=== PATIENT | female | born 1930 | race Caucasian/White ===

== ENCOUNTER 2017-02-11 16:29 | Observation (INO) | payer OTHER ==
[2017-02-11 16:42] VITALS: BP 159/72; PULSE 74; RESP 18; TEMP 97.9; O2SAT 99
[2017-02-11 16:47] VITALS: BP 159/72; PULSE 64; RESP 18; TEMP 97.9; O2SAT 97
[2017-02-11] MEDS ORDERED: SODIUM CHLORIDE 0.9% FLUSH 10 ML FLUSH IVF PRN (17:00)
--- NOTE | 2017-02-11 17:22 | RADRPT ---
EXAM DATE/TIME: 02/11/2017 16:59 [facility] COMPARISON: No previous studies available for comparison. INDICATIONS : Chest pain starting today MEDICAL HISTORY : None. SURGICAL HISTORY : None. ENCOUNTER: Initial ACUITY: 1 day PAIN SCORE: 2/10 LOCATION: Bilateral chest FINDINGS: A single view of the chest demonstrates the lungs to be symmetrically aerated without evidence of mas s, infiltrate or effusion. The cardiomediastinal contours are unremarkable. Osseous structures are intact. CONCLUSION: 1. No acute cardiopulmonary disease. Azeem King MD on February 11, 2017 at 17:20 Board Certified Radiologist. This report was verified electronically.
[2017-02-11 17:23] LABS: AUTOMATED NEUTROPHIL # 3.7 TH/MM3 (1.8-7.7); BASOPHIL # 0.1 TH/MM3 (0-0.2); BASOPHIL % 1.9 % (0.0-2.0); EOSINOPHIL # 0.1 TH/MM3 (0-0.4); EOSINOPHIL % 1.6 % (0.0-4.0); HEMATOCRIT 39.9 % (35.0-46.0); HEMO FLAGS DIFF FINAL; LYMPH % 36.8 % (9.0-44.0); LYMPHOCYTE # 2.7 TH/MM3 (1.0-4.8); MEAN CELL VOLUME 92.9 FL (80.0-100.0); MEAN CORPUSCULAR HEMOGLOBIN 31.7 PG (27.0-34.0); MEAN CORPUSCULAR HGB CONC 34.1 % (32.0-36.0); MONO % 9.1 % (0.0-8.0); NEUT % 50.6 % (16.0-70.0); PLATELET COUNT 196 TH/MM3 (150-450); RED BLOOD COUNT 4.29 MIL/MM3 (4.00-5.30); RED CELL DISTRIBUTION WIDTH 12.8 % (11.6-17.2); WHITE BLOOD COUNT 7.3 TH/MM3 (4.0-11.0)
[2017-02-11 17:32] LABS: APTT (PATIENT) 24.2 SEC (24.3-30.1); PROTHROMBIN TIME - PATIENT 10.6 SEC (9.8-11.6)
[2017-02-11 17:48] LABS: ANION GAP 4 MEQ/L (5-15); BICARBONATE 32.1 MEQ/L (21.0-32.0); BLOOD UREA NITROGEN 12 MG/DL (7-18); CHLORIDE 106 MEQ/L (98-107); CREATINE KINASE 128 U/L (26-192); GLOMERULAR FILTRATION RATE 101 ML/MIN (>89); MAGNESIUM 2.2 MG/DL (1.5-2.5); POTASSIUM 3.5 MEQ/L (3.5-5.1); SODIUM (NA) 142 MEQ/L (136-145)
[2017-02-11 18:01] LABS: CKMB 1.8 NG/ML (0.5-3.6)
--- NOTE | 2017-02-11 18:28 | PD ---
HPI Chief Complaint: Pain: Acute or Chronic Time Seen by Provider: 16:52 Travel History International Travel<30 days: No Contact w/Intl Traveler<30days: No Traveled to known affect area: No History of Present Illness HPI This is a 86-year-old female with a history of dementia comes from a longterm with complaints of chest pain. The patient is a poor historian and unable to give history other than she has pain in the middle of her chest. She states the pain is much improved. Reportedly when [facility] arrived they gave her an aspirin and nitroglycerin. She reports it's nearly gone however is unable to quantitate the pain on a 1-10 scale. There is no radiation. PFSH Past Medical History ?: Not Social History Tobacco Use: No (unknown) Allergies-Medications (Allergen,Severity, Reaction): Coded Allergies: Penicillins (Verified Allergy, Severe, hives, 02/11/17) Review of Systems ROS Limitations: Poor Historian (secondary to dementia.) Except as stated in HPI: all other systems reviewed are Neg (review of systems Limited secondary to the patient's dementia.) Cardiovascular: Positive: Chest Pain or Discomfort (substernal), No: Palpitations ( denies radiation) Respiratory: Positive: Shortness of Breath (possibly. Patient unable to tell for sure if she had shortness of breath.), No: Cough Physical Exam Narrative GENERAL: Well-developed well-nourished female in no acute respiratory distress. SKIN: Focused skin assessment warm/dry. HEAD: Atraumatic. Normocephalic. EYES: Pupils equal and round. No scleral icterus. No injection or drainage. ENT: No nasal bleeding or discharge. Mucous membranes pink and moist. NECK: Trachea midline. No JVD. Supple. CARDIOVASCULAR: Regular rate and rhythm. No murmur appreciated. RESPIRATORY: No accessory muscle use. Clear to auscultation. Breath sounds equal bilaterally. GASTROINTESTINAL: Abdomen soft, non-tender, nondistended. MUSCULOSKELETAL: No obvious deformities. No clubbing. No cyanosis. No edema. NEUROLOGICAL: Awake and confused. No obvious cranial nerve deficits. Motor grossly within normal limits. Normal speech. Data Data Last Documented VS Vital Signs Date Time Temp Pulse Resp B/P (MAP) Pulse Ox O2 Delivery O2 Flow Rate FiO2 02/11/17 19:05 66 16 145/77 (99) 95 Room Air 02/11/17 16:47 97.9 Orders Orders Electrocardiogram (02/11/17 16:52) Basic Metabolic Panel (Bmp) (02/11/17 16:52) Ckmb (Isoenzyme) Profile (02/11/17 16:52) Complete Blood Count With Diff (02/11/17 16:52) Magnesium (Mg) (02/11/17 16:52) Prothrombin Time / Inr (Pt) (02/11/17 16:52) Act Partial Throm Time (Ptt) (02/11/17 16:52) Troponin I (02/11/17 16:52) Chest, Single Ap (02/11/17 16:52) Ecg Monitoring (02/11/17 16:52) Bilateral Bp Monitoring (02/11/17:52) Iv Access Insert/Monitor (02/11/17 16:52) Oximetry (02/11/17 16:52) Oxygen Administration (02/11/17 16:52) Sodium Chloride 0.9% Flush (Ns Flush) (02/11/17 17:00) CKMB (02/11/17 17:00) CKMB% (02/11/17 17:00) Labs Laboratory Tests Test 02/11/17 17:00 White Blood Count 7.3 TH/MM3 Red Blood Count 4.29 MIL/MM3 Hemoglobin 13.6 GM/DL Hematocrit 39.9 % Mean Corpuscular Volume 92.9 FL Mean Corpuscular Hemoglobin 31.7 PG Mean Corpuscular Hemoglobin Concent 34.1 % Red Cell Distribution Width 12.8 % Platelet Count 196 TH/MM3 Mean Platelet Volume 8.9 FL Neutrophils (%) (Auto) 50.6 % Lymphocytes (%) (Auto) 36.8 % Monocytes (%) (Auto) 9.1 % Eosinophils (%) (Auto) 1.6 % Basophils (%) (Auto) 1.9 % Neutrophils # (Auto) 3.7 TH/MM3 Lymphocytes # (Auto) 2.7 TH/MM3 Monocytes # (Auto) 0.7 TH/MM3 Eosinophils # (Auto) 0.1 TH/MM3 Basophils # (Auto) 0.1 TH/MM3 CBC Comment DIFF FINAL Differential Comment Prothrombin Time 10.6 SEC Prothromb Time International Ratio 1.0 RATIO Activated Partial Thromboplast Time 24.2 SEC Blood Urea Nitrogen 12 MG/DL Creatinine 0.57 MG/DL Random Glucose 86 MG/DL Calcium Level 8.2 MG/DL Magnesium Level 2.2 MG/DL Sodium Level 142 MEQ/L Potassium Level 3.5 MEQ/L Chloride Level 106 MEQ/L Carbon Dioxide Level 32.1 MEQ/L Anion Gap 4 MEQ/L Estimat Glomerular Filtration Rate 101 ML/MIN Total Creatine Kinase 128 U/L Creatine Kinase MB 1.8 NG/ML Troponin I LESS THAN 0.02 NG/ML MDM Medical Decision Making Medical Screen Exam Complete: Yes Emergency Medical Condition: Yes Differential Diagnosis ACS versus GERD versus musculoskeletal pain. Narrative Course 86-year-old female with history of dementia present since today with complaints of chest pain. The patient has dementia and resides in a longterm. EKG and cardiac enzymes show no acute process. Given the patient's dementia status , I do not feel she is in good candidate for the chest pain center. There is a call out to the [facility] for admission under observation. Diagnosis Primary Impression: Chest pain Additional Impression: History of dementia Khalif Perrin MD Feb 11, 2017 18:28
[2017-02-11 19:05] VITALS: BP 145/77; PULSE 66; RESP 16; O2SAT 95
[2017-02-11] MEDS ORDERED: SODIUM CHLORIDE 0.9% FLUSH 10 ML FLUSH IV FLUSH PRN (19:45)
[2017-02-11] MEDS ORDERED: NITROGLYCERIN 0.4 MG SL 25 TABS/BTL SL PRN ×2 (19:45→21:30)
[2017-02-11] MEDS ORDERED: IBUP400T20 PO (20:54)
[2017-02-11] MEDS ORDERED: AMLO5 PO (20:54)
[2017-02-11] MEDS ORDERED: LISI-515 PO (20:54)
[2017-02-11] MEDS ORDERED: DICL1GEL7 TOPICAL (20:54)
[2017-02-11] MEDS ORDERED: NITR0.4S SL (20:54)
[2017-02-11] MEDS ORDERED: MEMA1CAP2 PO (20:54)
[2017-02-11] MEDS ORDERED: MILKSUS PO (20:54)
[2017-02-11] MEDS ORDERED: ASPI81CH CHEW (20:54)
[2017-02-11] MEDS ORDERED: LORA-392 PO ×2 (20:54)
[2017-02-11] MEDS ORDERED: LIPI40TA PO (20:54)
--- NOTE | 2017-02-11 20:54 | HHI.HP ---
[facility] Dom Segura MD Admission Diagnosis chest pain, dementia by history Diagnoses: (1) Chest pain (2) History of dementia Chief Complaint: Chest pain Travel History International Travel<30 Days: No Contact w/Intl Traveler <30 Da: No Traveled to Known Affected Are: No History of Present Illness Written by Julieta Saez, acting as scribe for Dr. Weir on 02/11/17 at 20:54. The patient is seen in the ED. She states she has been at a rehab facility for 3 months. She states "they wont let me out". Today, she went to go get candy out of a machine and "something" happened "in the middle of me". She dropped all of her candy or a soda, and was taken by staff to another room. She reports that "something" was a bad feeling centrally located in her chest. She denies any radiating pain to arms or neck. She denies nausea or diaphoresis. She states that the bad feeling subsided spontaneously. She is a poor historian due to dementia. Denies shortness of breath, chest pain, palliations, dizziness, fever, nausea, vomiting, diarrhea, black or red stool, hematuria, or abdominal pain. Review of Systems Except as stated in HPI: all other systems reviewed are Neg Past Family Social History Past Medical History Per Patient: Hypertension Arthritis Atrial flutter possibly - not on anticoagulation Denies diabetes, CAD, CHF, asthma, COPD, emphysema, liver problems, kidney problems, DVT, PE, CVA, seizures, thyroid problems, or cancer Per records reviewed from [facility] H&P dated 10/21/16 Hyperlipidemia Hypertension Alcoholism Tobacco abuse From records reviewed from [facility] - specifically the Transfer Summary - unspecified dementia COPD Essential hypertension Hyperlipidemia Nicotine Dependence Anxiety disorder Constipation . Past Surgical History Per records reviewed from [facility] - H&P dated 10/21/16 Appendectomy Cholecystectomy Hernia repair x 2 Shoulder surgery . Reported Medications Reported Meds & Active Scripts Active Reported Ibuprofen 400 Mg Tab 400 Mg PO Q6H PRN Namzaric (Memantine-Donepezil) 28-10 Mg Cap 1 Cap PO HS Lipitor (Atorvastatin Calcium) 40 Mg Tab 40 Mg PO HS Norvasc (Amlodipine Besylate) 5 Mg Tab 5 Mg PO DAILY Lisinopril 20 Mg Tab 20 Mg PO DAILY Milk of Magnesia Liq (Magnesium Hydroxide) 400 Mg/5 Ml Susp 30 Ml PO DAILY PRN Diclofenac Topical 1% Gel 1 Applic TOPICAL TID PRN Nitrostat SL (Nitroglycerin) 0.4 Mg Subl 0.4 Mg SL DIRECTED PRN 1 tablet under the tongue as needed for chest pain. Repeat every 5 minutes for a total of 3 DOSES or call 911 if NO relief. Aspirin 81 Mg Chew 81 Mg CHEW DAILY Ativan (Lorazepam) 0.5 Mg Tab 0.5 Mg PO BID PRN Ativan (Lorazepam) 0.5 Mg Tab 0.5 Mg PO DAILY PRN . Allergies: Coded Allergies: Penicillins (Verified Allergy, Severe, hives, 02/11/17) Active Ordered Medications Current Medications Sodium Chloride (NS Flush) 2 ml UNSCH PRN IVF FLUSH AFTER USING IV ACCESS; Start 02/11/17 at 17:00; Stop 02/11/17 at 19:46; Status DC Sodium Chloride (NS Flush) 2 ml BID IV FLUSH ; Start 02/11/17 at 21:00 Sodium Chloride (NS Flush) 2 ml UNSCH PRN IV FLUSH FLUSH AFTER USING IV ACCESS ; Start 02/11/17 at 19:45 Aspirin (Aspirin) 325 mg DAILY PO ; Start 02/12/17 at 09:00 Nitroglycerin (Nitrostat Sl) 0.4 mg Q5M PRN SL ANGINA; Start 02/11/17 at 19:45 Acetaminophen (Tylenol) 500 mg Q4H PRN PO HEADACHE; Start 02/11/17 at 19:45 . Family History States her sons are - does not remember what from . Social History Tobacco: smokes 6 cigarettes per day Alcohol: denies, never drank heavily Illicit Drugs: denies Ambulatory without assistance at the nursing facility . Physical Exam Vital Signs Vital Signs Date Time Temp Pulse Resp B/P (MAP) Pulse Ox O2 Delivery O2 Flow Rate FiO2 02/11/17 19:05 66 16 145/77 (99) 95 Room Air 02/11/17 19:05 97 Room Air 02/11/17 16:47 97.9 64 18 159/72 (101) 97 Room Air 02/11/17 16:42 97.9 74 18 159/72 (101) 99 Physical Exam GENERAL: This is a elderly forgetful female patient, in no apparent distress. SKIN: No rashes, ecchymoses or lesions. Cool and dry. HEAD: Atraumatic. Normocephalic. EYES: No scleral icterus. No injection or drainage. ENT: Nose without bleeding, purulent drainage. Airway patent. NECK: Trachea midline. No JVD or lymphadenopathy. Supple, nontender, no meningeal signs. CARDIOVASCULAR: Regular rate and rhythm without murmurs, gallops, or rubs. RESPIRATORY: Clear to auscultation. Breath sounds equal bilaterally. No wheezes , rales, or rhonchi. GASTROINTESTINAL: Abdomen soft, non-tender, nondistended. No guarding. MUSCULOSKELETAL: Extremities without clubbing, cyanosis, or edema. NEUROLOGICAL: Awake and alert. Motor and sensory grossly within normal limits. Normal speech. Forgetful, confused. Laboratory Laboratory Tests Test 02/11/17 17:00 White Blood Count 7.3 Red Blood Count 4.29 Hemoglobin 13.6 Hematocrit 39.9 Mean Corpuscular Volume 92.9 Mean Corpuscular Hemoglobin 31.7 Mean Corpuscular Hemoglobin Concent 34.1 Red Cell Distribution Width 12.8 Platelet Count 196 Mean Platelet Volume 8.9 Neutrophils (%) (Auto) 50.6 Lymphocytes (%) (Auto) 36.8 Monocytes (%) (Auto) 9.1 Eosinophils (%) (Auto) 1.6 Basophils (%) (Auto) 1.9 Neutrophils # (Auto) 3.7 Lymphocytes # (Auto) 2.7 Monocytes # (Auto) 0.7 Eosinophils # (Auto) 0.1 Basophils # (Auto) 0.1 CBC Comment DIFF FINAL Differential Comment Prothrombin Time 10.6 Prothromb Time International Ratio 1.0 Activated Partial Thromboplast Time 24.2 Blood Urea Nitrogen 12 Creatinine 0.57 Random Glucose 86 Calcium Level 8.2 Magnesium Level 2.2 Sodium Level 142 Potassium Level 3.5 Chloride Level 106 Carbon Dioxide Level 32.1 Anion Gap 4 Estimat Glomerular Filtration Rate 101 Total Creatine Kinase 128 Creatine Kinase MB 1.8 Troponin I LESS THAN 0.02 Result Diagram: 02/11/17 1700 02/11/17 1700 Imaging CXR negative for acute cardiopulmonary process Caprini VTE Risk Assessment Caprini VTE Risk Assessment: Mod/High Risk (score >= 2) Caprini Risk Assessment Model Point Value = 1 Point Value = 2 Point Value = 3 Point Value = 5 Age 41-60 Minor surgery BMI > 25 kg/m2 Swollen legs Varicose veins or History of unexplained or recurrent spontaneous Oral contraceptives or hormone replacement Sepsis (< 1 month) Serious lung disease, including pneumonia (< 1 month) Abnormal pulmonary function Acute myocardial infarction Congestive heart failure (< 1 month) History of inflammatory bowel disease Medical patient at bed rest Age 61-74 Arthroscopic surgery Major open surgery (> 45 min) Laparoscopic surgery (> 45 min) Malignancy Confined to bed (> 72 hours) Immobilizing plaster cast Central venous access Age >= 75 History of VTE Family history of VTE Factor V Leiden Prothrombin [id number] Lupus anticoagulant Anticardiolipin antibodies Elevated serum homocysteine Heparin-induced thrombocytopenia Other congenital or acquired thrombophilia Stroke (< 1 month) Elective arthroplasty Hip, pelvis, or leg fracture Acute spinal cord injury (< 1 month) Prophylaxis Regimen Total Risk Factor Score Risk Level Prophylaxis Regimen 0-1 Low Early ambulation 2 Moderate Order ONE of the following: *Sequential Compression Device (SCD) *Heparin 5000 units SQ BID 3-4 Higher Order ONE of the following medications: *Heparin 5000 units SQ TID *Enoxaparin/Lovenox 40 mg SQ daily (WT < 150 kg, CrCl > 30 mL/min) *Enoxaparin/Lovenox 30 mg SQ daily (WT < 150 kg, CrCl > 10-29 mL/min) *Enoxaparin/Lovenox 30 mg SQ BID (WT < 150 kg, CrCl > 30 mL/min) AND/OR *Sequential Compression Device (SCD) 5 or more Highest Order ONE of the following medications: *Heparin 5000 units SQ TID (Preferred with Epidurals) *Enoxaparin/Lovenox 40 mg SQ daily (WT < 150 kg, CrCl > 30 mL/min) *Enoxaparin/Lovenox 30 mg SQ daily (WT < 150 kg, CrCl > 10-29 mL/min) *Enoxaparin/Lovenox 30 mg SQ BID (WT < 150 kg, CrCl > 30 mL/min) AND *Sequential Compression Device (SCD) Assessment and Plan Problem List: (1) Chest pain ICD Code: R07.9 - Chest pain, unspecified Status: Acute (2) History of dementia ICD Code: Z86.59 - Personal history of other mental and behavioral disorders Status: Acute (3) Hypertension ICD Code: I10 - Essential (primary) hypertension Status: Chronic Assessment and Plan Atypical Chest Pain - initial troponin I is less than 0.02 and 12 lead EKG was personally reviewed and showed showed sinus bradycardia with right BBB with a rate of 58 and no ischemic changes noted - serial EKGs and cardiac enzymes to r/o ACS - Nitroglycerin 0.4 mg SL prn chest pain - continuous cardiac telemetry to monitor for cardiac arrhythmia - Lexiscan myocardial perfusion study in a.m. - NPO after midnight Dementia with high risk for ELOPEMENT - patient was found in another POD of the ED trying to escape - bed alarm - sitter Hypertension - continue home medications - monitor blood pressure trends and adjust treatments as needed DVT prophylaxis - Lovenox 40 mg subq q24h This note was transcribed by scribe [Julieta Saez]. I, Dr. Alexandria Weir personally performed the history, physical exam, and medical decision making; and confirmed the accuracy of the information in the transcribed note. Authenticated by Dr. Alexandria Weir on 02/11/17 at 20:54. Discussed Condition With ER physician and patient . Julieta Saez Feb 11, 2017 20:54 Alexandria Weir MD Feb 17, 2017 23:20
[2017-02-11] MEDS ORDERED: LORazepam 0.5 MG TAB PO PRN (21:15)
[2017-02-11] MEDS: SODIUM CHLORIDE 0.9% FLUSH 10 ML FLUSH IV FLUSH SCH (21:16)
[2017-02-11 22:10] VITALS: BP 161/69; PULSE 64; RESP 18; TEMP 98.2; O2SAT 96
[2017-02-11] MEDS: ACETAMINOPHEN 500 MG CPLT PO PRN (23:18)
[2017-02-12 00:13] VITALS: PULSE 65
[2017-02-12 02:19] VITALS: BP 132/61; PULSE 60; RESP 16; TEMP 97.6; O2SAT 94
[2017-02-12 04:03] VITALS: PULSE 55
[2017-02-12 05:04] VITALS: BP 137/62; PULSE 59; RESP 16; TEMP 97.7; O2SAT 94
[2017-02-12 05:56] LABS: ANION GAP 5 MEQ/L (5-15); BICARBONATE 31.8 MEQ/L (21.0-32.0); BLOOD UREA NITROGEN 12 MG/DL (7-18); CHLORIDE 107 MEQ/L (98-107); GLOMERULAR FILTRATION RATE 81 ML/MIN (>89); POTASSIUM 3.3 MEQ/L (3.5-5.1); SODIUM (NA) 144 MEQ/L (136-145)
[2017-02-12 06:01] LABS: CREATINE KINASE 105 U/L (26-192)
[2017-02-12 08:00] VITALS: BP 141/67; PULSE 58; PULSE 66; RESP 18; TEMP 97.5; O2SAT 94
[2017-02-12 08:19] LABS: AUTOMATED NEUTROPHIL # 2.3 TH/MM3 (1.8-7.7); BASOPHIL # 0.1 TH/MM3 (0-0.2); EOSINOPHIL # 0.2 TH/MM3 (0-0.4); HEMATOCRIT 38.5 % (35.0-46.0); HEMO FLAGS DIFF FINAL; LYMPH % 41.4 % (9.0-44.0); LYMPHOCYTE # 2.3 TH/MM3 (1.0-4.8); MEAN CELL VOLUME 91.5 FL (80.0-100.0); MEAN CORPUSCULAR HEMOGLOBIN 31.8 PG (27.0-34.0); MEAN CORPUSCULAR HGB CONC 34.8 % (32.0-36.0); MONO % 10.9 % (0.0-8.0); NEUT % 41.7 % (16.0-70.0); PLATELET COUNT 200 TH/MM3 (150-450); RED BLOOD COUNT 4.21 MIL/MM3 (4.00-5.30); RED CELL DISTRIBUTION WIDTH 12.6 % (11.6-17.2); WHITE BLOOD COUNT 5.4 TH/MM3 (4.0-11.0)
[2017-02-12] MEDS ORDERED: ASPIRIN 81 MG CHEW TAB CHEW SCH (09:00)
[2017-02-12] MEDS ORDERED: ENOXAPARIN SODIUM 40 MG/0.4 ML SYRINGE SQ SCH (09:00)
[2017-02-12] MEDS ORDERED: ASPIRIN 325 MG TAB PO SCH (09:00)
[2017-02-12] MEDS ORDERED: amLODIPine BESYLATE 5 MG TAB PO SCH (09:00)
[2017-02-12] MEDS ORDERED: LISINOPRIL 20 MG TAB PO SCH (09:00)
[2017-02-12] MEDS ORDERED: REGADENOSON INJ 0.4 MG/5 ML SYR ONE (09:12)
[2017-02-12] MEDS: ACETAMINOPHEN 500 MG CPLT PO PRN (10:34)
[2017-02-12] MEDS: SODIUM CHLORIDE 0.9% FLUSH 10 ML FLUSH IV FLUSH SCH (10:36)
--- NOTE | 2017-02-12 10:42 | RADRPT ---
EXAM DATE/TIME: 02/12/2017 08:58 [facility] COMPARISON: No previous studies available for comparison. INDICATIONS : Mid chest pain for one day. Right bundle branch block. DOSE: 25.8 mCi Tc99m Myoview at stress. 8.7 mCi Tc99m Myoview at rest. 0.4 mg Lexiscan STRESS SYMPTOMS: Chest pain, shortness of breath, headache. EJECTION FRACTION: 69% MEDICAL HISTORY : Hypertension. Dementia. SURGICAL HISTORY : Appendectomy. Cholecystectomy. ENCOUNTER: Initial ACUITY: 1 day PAIN SCALE: 5/10 LOCATION: Midsternal chest TECHNIQUE: The patient underwent pharmacologic stress with infusion of prescribed dose. Continuous ECG tracing was monitored during stress. Gated SPECT imaging was performed after stress and conventional SPECT i maging was performed at rest. The examination was performed on a SPECT/CT scanner, both attenuation and non-corrected datasets were reviewed. FINDINGS: DISTRIBUTION: The maximum perfused segment at stress is in the anterior wall. PERFUSION STUDY: The pattern of perfusion at stress is within normal limits. There is a summed stress score of zero. GATED STUDY: There is intact wall motion and thickening without hypokinetic or dyskinetic segments. CONCLUSION: 1. No fixed or reversible defects to suggest ischemia or infarction. 2. Normal wall motion and calculated ejection fraction. RISK CATEGORY: Low (<1% Annual Mortality Rate) Mazin Perez MD on February 12, 2017 at 10:39 Board Certified Radiologist. This report was verified electronically.
--- NOTE | 2017-02-12 11:37 | HHI.DCPOC ---
Discharge Care Plan Diagnosis: (1) Chest pain (2) History of dementia (3) Hypertension Goals to Promote Your Health * To prevent worsening of your condition and complications * To maintain your health at the optimal level Directions to Meet Your Goals Take your medications as prescribed Follow your dietary instruction Follow activity as directed Keep your appointments as scheduled Take your immunizations and boosters as scheduled If your symptoms worsen call your PCP, if no PCP go to Urgent Care Center or Emergency Room Smoking is Dangerous to Your Health. Avoid second hand smoke Call the 24-hour hour crisis hotline for domestic abuse at Anel Caldwell PA-C Feb 12, 2017 11:37 am
[2017-02-12] MEDS ORDERED: POTASSIUM CHLORIDE 20 MEQ CONTROLLED RELEASE TAB PO ONE (11:45)
--- NOTE | 2017-02-12 11:48 | HHI.PR ---
Subjective Remarks Follow up for chest pain. The patient is an extremely poor historian with hx of dementia, oriented to person, hospital, and 2017 only. She denies ever having any chest pains. She states she has a block in her brain and it was bad yesterday but now cleared up today. When asked what she means by the block, she says "you know where I forget stuff". She denies any headache, lightheadedness, dizziness, chest pain, palpitations, shortness of breath, or abdominal complaints. Objective Vitals Vital Signs Date Time Temp Pulse Resp B/P (MAP) Pulse Ox O2 Delivery O2 Flow Rate FiO2 02/12/17 08:00 97.5 66 18 141/67 (91) 94 02/12/17 05:04 97.7 59 16 137/62 (87) 94 02/12/17 04:03 55 02/12/17 02:19 97.6 60 16 132/61 (84) 94 02/12/17 00:13 65 02/11/17 22:10 98.2 64 18 161/69 (99) 96 02/11/17 19:05 66 16 145/77 (99) 95 Room Air 02/11/17 19:05 97 Room Air 02/11/17 16:47 97.9 64 18 159/72 (101) 97 Room Air 02/11/17 16:42 97.9 74 18 159/72 (101) 99 Result Diagram: 02/12/17 0712 02/12/17 0503 Imaging Last Impressions Myocardial Perfusion Scan Nuc Med 02/12/17 0000 Signed Impressions: Service Date/Time: February 08:58 - CONCLUSION: 1. No fixed or reversible defects to suggest ischemia or infarction. 2. Normal wall motion and calculated ejection fraction. RISK CATEGORY: Low (<1%% Annual Mortality Rate) Mazin Perez MD Chest X-Ray 02/11/17 1652 Signed Impressions: Service Date/Time: Saturday, February 11, 2017 16:59 - CONCLUSION: 1. No acute cardiopulmonary disease. Azeem King MD Objective Remarks GENERAL: Well-nourished, well-developed elderly female patient in [facility]. SKIN: Warm and dry. No rash. HEENT: Normocephalic. Atraumatic.Pupils equal and round. Mucous membranes pink and moist. CARDIOVASCULAR: Regular rate and rhythm. S1, S2 noted. No murmur appreciated. RESPIRATORY: No accessory muscle use. Clear to auscultation. Breath sounds equal bilaterally. GASTROINTESTINAL: Abdomen soft, non-tender, nondistended. Normoactive bowel sounds x4. MUSCULOSKELETAL: No obvious deformities. Extremities without clubbing, cyanosis , or edema. NEUROLOGICAL: Awake and alert. No obvious cranial nerve deficits. Motor grossly within normal limits. Moves all extremities spontaneously. Normal speech. PSYCHIATRIC: Pleasantly confused mood; insight and judgment limited. Medications and IVs Current Medications Medications (Trade) Dose Ordered Sig/Rafael Route Start Time Stop Time Status Last Admin (NS Flush) 2 ml BID IV FLUSH 02/11/17 21:00 02/12/17 10:36 (NS Flush) 2 ml UNSCH PRN IV FLUSH 02/11/17 19:45 (Tylenol) 500 mg Q4H PRN PO 02/11/17 19:45 02/12/17 10:34 (Norvasc) 5 mg DAILY PO 02/12/17 09:00 02/12/17 10:34 (Aspirin Chew) 81 mg DAILY CHEW 02/12/17 09:00 02/12/17 10:34 (Lipitor) 40 mg HS PO 02/12/17 21:00 (Prinivil) 20 mg DAILY PO 02/12/17 09:00 02/12/17 10:34 (Ativan) 0.5 mg DAILY PRN PO 02/11/17 21:15 02/11/17 23:18 (Nitrostat Sl) 0.4 mg Q5M PRN SL 02/11/17 21:30 (Lovenox Inj) 40 mg Q24H SQ 02/12/17 09:00 Patient Own Medication PT OWN MED: MANZA... HS PO 02/12/17 21:00 Future Hold A/P Problem List: (1) Chest pain ICD Code: R07.9 - Chest pain, unspecified Status: Acute (2) History of dementia ICD Code: Z86.59 - Personal history of other mental and behavioral disorders Status: Acute (3) Hypertension ICD Code: I10 - Essential (primary) hypertension Status: Chronic Assessment and Plan 86-year-old female with history of Alzheimer's dementia, hypertension, presents with acute onset of chest pain while at SNF Atypical Chest Pain - ACS ruled out with negative serial cardiac enzymes x3 and EKG reviewed, shows showed sinus bradycardia with right BBB with a rate of 58 and no ischemic changes noted - Nitroglycerin 0.4 mg SL prn chest pain - continuous cardiac telemetry to monitor for cardiac arrhythmia, no acute findings - Lexiscan myocardial perfusion study unremarkable with normal ejection fraction - symptoms resolved, stable for discharge Dementia with high risk for ELOPEMENT - patient was found in another POD of the ED trying to escape - bed alarm - d/c back to SNF Hypertension - continue home medications - monitor blood pressure trends and adjust treatments as needed DVT prophylaxis - Lovenox 40 mg subq q24h Discharge Planning Discharge patient back to SNF Condition on discharge: Improved Heart Healthy Diet as tolerated Ad Ximena activity Rx written: no changes to meds Follow-up with primary care physician Dr. Segura in 2-3 days Anel Caldwell PA-C Feb 12, 2017 11:48 am
--- NOTE | 2017-02-12 14:55 | EKG ---
Date Performed: 02/11/2017 Time Performed: 23:34:03 PTAGE: 86 years EKG: SINUS BRADYCARDIA RIGHT BUNDLE BRANCH BLOCK ABNORMAL ECG PREVIOUS TRACING : 02/11/2017 16.53 Compared to prior tracing no significant change DOCTOR: Domo Boudreaux Interpretating Date/Time 02/12/2017 14:53:28
--- NOTE | 2017-02-12 14:55 | EKG ---
Date Performed: 02/11/2017 Time Performed: 16:53:12 PTAGE: 86 years EKG: SINUS BRADYCARDIA RIGHT BUNDLE BRANCH BLOCK ABNORMAL ECG NO PREVIOUS TRACING DOCTOR: Domo Boudreaux Interpretating Date/Time 02/12/2017 14:53:19
--- NOTE | 2017-02-12 14:56 | EKG ---
Date Performed: 02/12/2017 Time Performed: 05:11:57 PTAGE: 86 years EKG: SINUS BRADYCARDIA RIGHT BUNDLE BRANCH BLOCK ABNORMAL ECG PREVIOUS TRACING : 02/11/2017 23.34 Compared to prior tracing no significant change DOCTOR: Domo Boudreaux Interpretating Date/Time 02/12/2017 14:53:45
[2017-02-12] MEDS ORDERED: ATORVASTATIN 40 MG TAB PO SCH (21:00)
[2017-02-12] MEDS ORDERED: [UNRECOGNIZED DRUG - OTHER] PO SCH (21:00)
[2017-02-12] MEDS ORDERED: NON-FORMULARY DRUG (Memantine-Donepezil (Namzaric) 1 CAP) PO SCH (21:00)
== END 2017-02-12 15:03 | disposition home or self-care (01) ==
LOC: NEPC 16:29 → NEDA 19:22 → NEPHCDU 21:31
PROVIDERS: ADMIT Internal Medicine; ATTEND Internal Medicine
DX: R07.89 Other chest pain (principal); G30.9 Alzheimer's disease, unspecified; F02.80 Dementia in other diseases classified elsewhere, unspecified severity, without behavioral disturbance, psychotic disturbance, mood disturbance, and anxiety; I10 Essential (primary) hypertension; R94.31 Abnormal electrocardiogram [ECG] [EKG]
CPT/HCPCS: 71010; 78452; 80048; 82550; 82552; 83735; 84484; 85025; 85610; 85730; 93005; 93017; 99285; A9502; G0378; J2785